=== PATIENT | female | born 1980 | race American Indian/Alaskan Native ===

== ENCOUNTER 2017-03-26 22:48 | Emergency (ER) | payer MEDICAID ==
[2017-03-26 23:19] VITALS: BP 133/92
[2017-03-26 23:48] LABS: Hematocrit 36.2 % (30.3-42.9); Hemoglobin 11.8 gm/dl (10.1-14.3); Mean Corpuscular HGB Conc 33 % (30-34); Mean Corpuscular Hemoglobin 27 pg (28-32); Mean Corpuscular Volume 84 fl (79-97); Platelet Count 309 K/mm3 (140-440); Red Blood Count 4.32 M/mm3 (3.65-5.03); Red Cell Distribution Width 15.1 % (13.2-15.2); White Blood Count 10.1 K/mm3 (4.5-11.0)
[2017-03-26 23:59] LABS: Alanine Aminotransferase 11 units/L (7-56); Albumin/Globulin Ratio 1.1 %; Alkaline Phosphatase 85 units/L (35-129); Anion Gap 21 mmol/L; BUN/Creatinine Ratio 14.28; Blood Urea Nitrogen 10 mg/dL (7-17); Calcium 8.9 mg/dL (8.4-10.2); Carbon Dioxide 21 mmol/L (22-30); Glucose 119 mg/dL (65-100); Potassium 3.6 mmol/L (3.6-5.0); Sodium 137 mmol/L (137-145); Total Protein 7.7 g/dL (6.3-8.2)
--- NOTE | 2017-03-27 00:46 | XRay Report ---
FINAL REPORT EXAM: XR CHEST ROUTINE 2V HISTORY: SOB TECHNIQUE: 2 views of the chest. PRIORS: None. FINDINGS: The cardiomediastinal silhouette appears normal. The lungs are clear. The bones and soft tissues are unremarkable. IMPRESSION: No evidence of acute cardiopulmonary disease
== END 2017-03-27 06:10 | disposition left against medical advice (07) ==
LOC: ED 22:48
DX: F41.9 Anxiety disorder, unspecified (principal); Z53.21 Procedure and treatment not carried out due to patient leaving prior to being seen by health care provider
CPT/HCPCS: 36415; 71020; 80053; 85027; 93005; 93010

== ENCOUNTER 2020-10-29 19:43 | Emergency (ER) | payer MEDICAID ==
--- NOTE | 2020-10-29 19:58 | Event Note ---
ED Screening Note Date of service: 10/29/20 Time: 19:57 ED Screening Note: Patient complains of left-sided headache x4 days States OTC medications are not helping No history of migraines per patient Heart rate noted to be elevated patient states she does feel anxious and has a history of anxiety and panic attacks - This initial assessment/diagnostic orders/clinical plan/treatment(s) is/are subject to change based on patients health status, clinical progression and re- assessment by fellow clinical providers in the ED. Further treatment and workup at subsequent clinical providers discretion. Patient/guardian urged not to elope from the ED as their condition may be serious if not clinically assessed and managed. Initial orders include: Lab
[2020-10-29 21:20] LABS: Basophils % (Auto) 0.4 % (0.0-1.8); Eosinophils # (Auto) 0.1 K/mm3 (0.0-0.4); Eosinophils % (Auto) 1.3 % (0.0-4.3); Hematocrit 34.3 % (30.3-42.9); Hemoglobin 11.5 gm/dl (10.1-14.3); Lymphocytes # (Auto) 2.2 K/mm3 (1.2-5.4); Lymphocytes % (Auto) 18.9 % (13.4-35.0); Mean Corpuscular HGB Conc 34 % (30-34); Mean Corpuscular Volume 81 fl (79-97); Monocytes # (Auto) 0.9 K/mm3 (0.0-0.8); Monocytes % (Auto) 8.1 % (0.0-7.3); Platelet Count 428 K/mm3 (140-440); Red Blood Count 4.24 M/mm3 (3.65-5.03); Red Cell Distribution Width 16.8 % (13.2-15.2)
[2020-10-29 21:30] LABS: Alanine Aminotransferase 12 units/L (7-56); Albumin 4.3 g/dL (3.9-5); Blood Urea Nitrogen 11 mg/dL (7-17); Calcium 9.7 mg/dL (8.4-10.2); Hemolysis Index 7
[2020-10-29 21:34] LABS: BUN/Creatinine Ratio 16
--- NOTE | 2020-10-30 02:17 | Emergency Department Report ---
ED General Adult HPI - General Chief complaint: Headache Stated complaint: LT SIDE PAINS HEAD Time Seen by Provider: 10/29/20 19:57 Source: patient Mode of arrival: Ambulatory Limitations: No Limitations - History of Present Illness Initial comments: Patient is a 40-year-old -[place] female with a history of migraine headaches and hypertension who presents to the ED with complaint of acute onset persistent frontal and maxillary sinus pressure and headache with nasal and sinus congestion for the last 4 days. Patient states that she was diagnosed with COVID-19 viral infection as well as all family members 2 weeks ago and are currently completing the self quarantine time. Patient states that she has not been able to sleep because of worsening frontal sinus pressure and headache. Patient states that she has been taking [id number] medications with no relief. Patient denies dizziness, syncope, nausea, vomiting, chest pain or shor tness of breath, sore throat, lack of appetite, change in vision, neck pain, seizures, abdominal pain, diarrhea or change in appetite. MD Complaint: Frontal and maxillary sinus pressure; Frontal headache -: Sudden, days(s) (4) Location: head, face Radiation: non-radiation Severity scale (0 -10): 5 Quality: aching, constant, other (pressure) Consistency: constant Improves with: none Worsens with: other (Supine and upright positions) Associated Symptoms: denies other symptoms, cough, headaches, other (s/p COvid- 19 infection 2 weeks ago). denies: confusion, chest pain, diaphoresis, fever/chills, loss of appetite, malaise, nausea/vomiting, rash, seizure, shortness of breath, syncope, weakness - Related Data Home Medications Medication Instructions Recorded Confirmed Last Taken Vits96/Iron Fum/Folic 1 tab PO DAILY 11/27/13 01/20/14 01/16/14 [ Tablet] 1 tab Previous Rx's Medication Instructions Recorded Last Taken Type Acetaminophen/Codeine [Tylenol #3] 1 tab PO Q6H PRN #8 tab 08/14/13 01/16/14 Rx 1 tab Indomethacin [Indocin] 50 mg PO Q12HR #6 capsule 11/29/13 01/16/14 Rx 1 tab Ibuprofen [Motrin 600 MG tab] 800 mg PO Q8H PRN #30 tablet 01/20/14 Unknown Rx Butalbit/Acetamin/Caff/Codeine 1 cap PO Q6HR PRN #20 cap 09/02/15 Unknown Rx [Fioricet/Codeine 30-464-93-30] Ciprofloxacin HCl [Ciprofloxacin 500 mg PO Q12HR #14 tab 10/17/15 Unknown Rx TAB] Ibuprofen [Motrin 800 MG tab] 800 mg PO Q8HR PRN #30 tablet 10/17/15 Unknown Rx metroNIDAZOLE [Flagyl] 500 mg PO Q12HR #20 tab 10/17/15 Unknown Rx oxyCODONE /ACETAMINOPHEN [Percocet 1 tab PO Q4HR #20 tablet 10/17/15 Unknown Rx 5/325 mg] Butalb/Acetamin/Caff 50-325-40 1 - 2 tab PO Q6HR PRN #12 tab 10/30/20 Unknown Rx [Fioricet 50-325-40] Cetirizine HCl [Zyrtec 10mg tab] 10 mg PO DAILY #30 tablet 10/30/20 Unknown Rx Doxycycline Hyclate 100 mg PO Q12H #20 tablet. 10/30/20 Unknown Rx Fluticasone [Flonase] 1 spray NS QDAY #1 bottle 10/30/20 Unknown Rx Ketorolac [Toradol] 10 mg PO Q8H PRN #20 tablet 10/30/20 Unknown Rx Allergies Allergy/AdvReac Type Severity Reaction Status Date / Time Penicillins AdvReac Headache Verified 03/26/17 23:23 ED Review of Systems ROS: Stated complaint: LT SIDE PAINS HEAD Other details as noted in HPI Constitutional: denies: chills, fever Eyes: denies: eye pain, eye discharge, vision change ENT: congestion, other (Frontal and maxillary sinus pressure). denies: ear pain, throat pain Respiratory: cough. denies: shortness of breath, wheezing Cardiovascular: denies: chest pain, palpitations Endocrine: no symptoms reported Gastrointestinal: denies: abdominal pain, nausea, diarrhea Genitourinary: denies: urgency, dysuria, discharge Musculoskeletal: denies: back pain, joint swelling, arthralgia Skin: denies: rash, lesions Neurological: headache (Frontal and maxillary sinus pressure and headache). denies: weakness, paresthesias Psychiatric: denies: anxiety, depression Hematological/Lymphatic: denies: easy bleeding, easy bruising ED Past Medical Hx - Past Medical History Previous Medical History?: Yes Hx Hypertension: Yes Hx Heart Attack/AMI: No Hx Congestive Heart Failure: No Hx Diabetes: No Hx Deep Vein Thrombosis: No Hx Liver Disease: No Hx Renal Disease: No Hx Sickle Cell Disease: No Hx Headaches / Migraines: Yes Hx Seizures: No Hx Asthma: No Hx COPD: No Hx HIV: No Additional medical history: FIBROIDS - Surgical History Past Surgical History?: Yes Hx Pacemaker: No Hx Internal Defibrillator: No Additional Surgical History: , ovarian cyst removal - Social History Smoking Status: Never Smoker Substance Use Type: None - Medications Home Medications: Home Medications Medication Instructions Recorded Confirmed Last Taken Type Acetaminophen/Codeine [Tylenol #3] 1 tab PO Q6H PRN #8 tab 08/14/13 01/20/14 01/16/14 Rx 1 tab Vits96/Iron Fum/Folic 1 tab PO DAILY 11/27/13 01/20/14 01/16/14 History [ Tablet] 1 tab Indomethacin [Indocin] 50 mg PO Q12HR #6 capsule 11/29/13 01/20/14 01/16/14 Rx 1 tab Ibuprofen [Motrin 600 MG tab] 800 mg PO Q8H PRN #30 tablet 01/20/14 Unknown Rx Butalbit/Acetamin/Caff/Codeine 1 cap PO Q6HR PRN #20 cap 09/02/15 Unknown Rx [Fioricet/Codeine 79-730-64-30] Ciprofloxacin HCl [Ciprofloxacin 500 mg PO Q12HR #14 tab 10/17/15 Unknown Rx TAB] Ibuprofen [Motrin 800 MG tab] 800 mg PO Q8HR PRN #30 tablet 10/17/15 Unknown Rx metroNIDAZOLE [Flagyl] 500 mg PO Q12HR #20 tab 10/17/15 Unknown Rx oxyCODONE /ACETAMINOPHEN [Percocet 1 tab PO Q4HR #20 tablet 10/17/15 Unknown Rx 5/325 mg] Butalb/Acetamin/Caff 50-325-40 1 - 2 tab PO Q6HR PRN #12 tab 10/30/20 Unknown Rx [Fioricet 50-325-40] Cetirizine HCl [Zyrtec 10mg tab] 10 mg PO DAILY #30 tablet 10/30/20 Unknown Rx Doxycycline Hyclate 100 mg PO Q12H #20 tablet 10/30/20 Unknown Rx Fluticasone [Flonase] 1 spray NS QDAY #1 bottle 10/30/20 Unknown Rx Ketorolac [Toradol] 10 mg PO Q8H PRN #20 tablet 10/30/20 Unknown Rx ED Physical Exam - General Limitations: No Limitations General appearance: alert, in no apparent distress - Head Head exam: Present: atraumatic, normocephalic, normal inspection - Eye Eye exam: Present: normal appearance, PERRL, EOMI Pupils: Present: normal accommodation - ENT ENT exam: Present: normal orophraynx, mucous membranes moist, TM's normal bilaterally, normal external ear exam, other (Grossly congested nasal passages; palpable frontal and maxillary sinus tenderness) - Neck Neck exam: Present: normal inspection, full ROM - Respiratory Respiratory exam: Present: normal lung sounds bilaterally. Absent: respiratory distress, wheezes, rales, rhonchi, chest wall tenderness, accessory muscle use, decreased breath sounds, prolonged expiratory - Cardiovascular Cardiovascular Exam: Present: normal rhythm, tachycardia, normal heart sounds. Absent: systolic murmur, diastolic murmur, rubs, gallop - GI/Abdominal GI/Abdominal exam: Present: soft, normal bowel sounds. Absent: tenderness, guarding, rebound, hyperactive bowel sounds, hypoactive bowel sounds, organomegaly - Extremities Exam Extremities exam: Present: normal inspection, full ROM, normal capillary refill - Back Exam Back exam: Present: normal inspection, full ROM. Absent: tenderness, CVA tender ness (R), CVA tenderness (L), muscle spasm, paraspinal tenderness - Neurological Exam Neurological exam: Present: alert, oriented X3, CN II-XII intact, normal gait, reflexes normal - Psychiatric Psychiatric exam: Present: normal affect, normal mood - Skin Skin exam: Present: warm, dry, intact, normal color. Absent: rash ED Course Vital Signs 10/29/20 10/30/20 19:55 01:34 Temperature 98.2 F 98.5 F Pulse Rate 110 H 82 Respiratory 16 18 Rate Blood Pressure 125/84 Blood Pressure 165/80 [Left] O2 Sat by Pulse 97 98 Oximetry ED Medical Decision Making - Lab Data Result diagrams: 10/29/20 20:47 10/29/20 20:47 - Medical Decision Making This is a 40-year-old -[place] female with a history of migraine headaches and hypertension who presents to the ED with complaint of acute onset persistent frontal and maxillary sinus pressure and headache with nasal and sinus congestion for the last 4 days. Patient states that she was diagnosed with COVID-19 viral infection as well as all family members 2 weeks ago and are currently completing the self quarantine time. Patient states that she has not been able to sleep because of worsening frontal sinus pressure and headache. Patient states that she has been taking [id number] medications with no relief. In the ED, patient is alert and oriented x3 and is not in distress but tachycardic and afebrile in triage. Patient was treated in the ED for headache and on reevaluation, patient's tachycardia resolved with medication. Patient wa s discharged home on medications and was advised to follow-up with her primary care physician in 7 to 10 days for reevaluation or return to the ED immediately if symptoms get worse. - Differential Diagnosis sinusitis; URI; Migraine headache; Tension headache; cluster headache Critical care attestation.: If time is entered above; I have spent that time in minutes in the direct care of this critically ill patient, excluding procedure time. ED Disposition Clinical Impression: Sinus headache, Acute upper respiratory infection Acute pansinusitis, unspecified Qualifiers: Recurrence: non-recurrent Qualified Code(s): J01.40 - Acute pansinusitis, unspecified Disposition: DC-01 TO HOME OR SELFCARE Is pt being admited?: No Does the pt Need Aspirin: No Condition: Stable Instructions: Sinusitis, Adult, [id number], Upper Respiratory Infection, Adult, [id number], Sinus Headache, Sinus Headache, [id number] Additional Instructions: Take medication with food, drink plenty of fluids and follow-up with your primary care physician in 7 to 10 days for reevaluation. Return to the ED immediately if symptoms get worse. Prescriptions: Doxycycline Hyclate 100 mg PO Q12H #[address] Hillman/Acetamin/Caff 50-325-40 [Fioricet 50-325-40] 1 - 2 tab PO Q6HR PRN #12 tab PRN Reason: Headache Fluticasone [Flonase] 1 spray NS QDAY #1 bottle Ketorolac [Toradol] 10 mg PO Q8H PRN #20 tablet PRN Reason: Pain Cetirizine HCl [Zyrtec 10mg tab] 10 mg PO DAILY #30 tablet Referrals: [facility] [Provider Group] - 3-5 Days Time of Disposition: 02:20 Print Language: SAMI
[2020-10-30] MEDS ORDERED: AZITHROMYCIN 250 MG TAB PO ONE (02:24)
[2020-10-30 07:06] VITALS: BP 147/74
== END 2020-10-30 03:30 | disposition home or self-care (01) ==
LOC: ED 19:43
DX: J01.40 Acute pansinusitis, unspecified (principal); J06.9 Acute upper respiratory infection, unspecified; I10 Essential (primary) hypertension; G43.909 Migraine, unspecified, not intractable, without status migrainosus; Z98.890 Other specified postprocedural states; Z79.1 Long term (current) use of non-steroidal anti-inflammatories (NSAID); Z79.899 Other long term (current) drug therapy; Z88.0 Allergy status to penicillin
CPT/HCPCS: 36415; 80053; 84703; 85025